=== PATIENT | female | born 1995 | race Caucasian/White ===

== ENCOUNTER 2016-03-29 07:21 | Emergency (ER) | payer SELFPAY ==
--- NOTE | 2016-03-29 08:34 | ERRECORD ---
[facility] EMERGENCY RECORD HPI VAGINAL DISCHARGE (08:03 MBRI) CHIEF COMPLAINT: Patient presents for evaluation of 20 yo female with complaints of vaginal sores and pain. This started several days ago after the patient shaved her rectal and genital region. She began to notice numerous pustular type blisters in the area along with pain. This was mod but severe last night and it made it difficult to sleep last night. She denies f/c/n/v. No abd issues. No other complaints today. She is on her cycle currently which is normal. No vaginal pain or discharge noted. No prior hx of same in the past and no reported hx of STI's. HISTORIAN: History provided by patient. LOCATION: Symptoms are localized. QUALITY: Pain is sharp in nature. TIME COURSE: Gradual onset of symptoms, 3, days priror to arrival, Symptoms are worsening, are constant. ASSOCIATED WITH: Associated with vaginal bleeding, Denies any other complaints. EXACERBATED BY: Patient's condition exacerbated by intercourse, Patient's condition exacerbated by movement. RELIEVED BY: Patient's condition relieved by nothing. ROS (08:11 MBRI) CONSTITUTIONAL: Historian denies chills, denies fever. GI: Negative gastrointestinal review of systems, Historian denies abdominal pain, denies diarrhea, denies nausea, denies vomiting. GENITOURINARY FEMALE: Historian denies dysuria, denies frequency, denies hematuria, denies , denies urinary retention, reports vaginal bleeding, denies vaginal discharge, reports vaginal itching. SKIN: Historian denies cellulitis, denies induration, reports rash, reports skin lesions. NEUROLOGIC: Negative neurologic review of systems. NOTES: All systems reviewed, negative except as described above. PAST MEDICAL HISTORY (07:31 ERUI) MEDICAL HISTORY: No past medical history, Flu vaccine not up to date, Tetanus immunization up to date, Pneumococcal vaccine not up to date. FEMALE SURGICAL HISTORY: Patient has no surgical history. PSYCHIATRIC HISTORY: No previous psychiatric history. SOCIAL HISTORY: Patient denies alcohol use, Patient denies drug use, Patient has no smoking history. KNOWN ALLERGIES No Known Drug Allergies CURRENT MEDICATIONS No recorded medications VITAL SIGNS (07:27 AHOO) &a-1R&a+25V*p+0X*a0615W*c202B*c15G*c2P*p-0X&a-25V&a+1R Name: Deedee Hamm : 1995 F20 MedRec: [id number] AcctNum: [id number] Prepared: MonMar 31, 2016 10:54 by Interface Page 1 of 3 pMD [facility] EMERGENCY RECORD VITAL SIGNS: BP: 124/81, Pulse: 106, Resp: 18, Temp: 98.8 (Oral), Pain: 0, O2 sat: 97 on Room Air, Time: 03/29/2016 07:27. PHYSICAL EXAM (08:14 MBRI) CONSTITUTIONAL: Vital signs reviewed. EYES: Eye exam normal, Eye exam included findings of eyelids normal to inspection, Pupils equally round and reactive to light, Extraocular muscles intact. ENT: Pharynx exam normal, Uvula exam normal, Tonsil exam normal, Mouth exam included findings of, Lesions noted, aphthous ulcers noted to the intraoral regions of the upper lip. RESPIRATORY CHEST: Respiratory exam included findings of no respiratory distress, Breath sounds clear, No wheezing, No rales, No rhonchi. CARDIOVASCULAR: Cardiovascular exam included findings of heart rate regular rate and rhythm, Heart sounds normal. ABDOMEN FEMALE: Abdominal exam included findings of abdomen nontender, no distension, no peritoneal signs, no rigidity, no guarding, no rebound. GENITOURINARY FEMALE: Genitourinary exam included findings of external genitalia abnormal, multiple pustular lesions notes of the mons, martha labia and post vaginal opening as well as multiple lesions in the perirectal region. Many of these are noted to have unroofed and are shallow ulcers at this time. Appears to possibly represent folliculitis vs primary HSV reaction., vaginal mucosa normal. NEURO: Margaret coma scale 15, Neuro exam findings include patient oriented to person, place and time, Speech normal. SKIN: Skin exam included findings of skin warm, dry, and normal in color. DOCTOR NOTES (08:18 MBRI) TEXT: Pt with findings of new onset rash lesions that could represent follicular infection based on her recent grooming issues. Will place her on abx and rec PMD type follow-up vs return to ED for worsening issues. I have also discussed these lesions as possible HSV primary reaction and have collected samples for clarification of this diagnosis. I discussed at length these situations and pt states understanding. Pt stable for d/c at this time. PATIENT PLAN: The patient will be discharged, The patient will follow up with primary care physician. PROBLEM LIST No recorded problems DIAGNOSIS (07:58 MBRI) FINAL: PRIMARY: folliculitis of the vaginal/rectal area. &a-1R&a+25V*p+0X*c8302R*c202B*c15G*c2P*p-0X&a-25V&a+1R Name: Deedee Hamm : 1995 F20 MedRec: [id number] AcctNum: [id number] Prepared: Maryuri Mar 31, 2016 10:54 by Interface Page 2 of 3 pMD [facility] EMERGENCY RECORD PRESCRIPTION (07:54 MBRI) acetaminophen-codeine: TABLET : 300 mg-30 mg : ORAL : Quantity: 1 Unit: tab(s) Route: ORAL Schedule: every 4 hours prn Dispense: 20 May substitute. Refills: No Refills . NOTES: No refills. Bactrim DS: TABLET : 800 mg-160 mg : ORAL : Quantity: 1 Unit: tab(s) Route: ORAL Schedule: 2 times a day Dispense: 14 May substitute. Refills: No Refills . NOTES: ^s=No refills No refills. Keflex: CAPSULE (HARD, SOFT, ETC.) : 500 mg : ORAL : Quantity: 1 Unit: tab(s) Route: ORAL Schedule: every 6 hours Dispense: 28 May substitute. Refills: No Refills . NOTES: ^s=^s=No refills No refills No refills. DISPOSITION PATIENT: Disposition Type: Discharge, Disposition: *Discharge Home. (07:58 RI) Patient left the department. (08:27 [facility]) Hearn: TRAE=LIANNE Morley, May ERUI=MARYA Eduardo Emilia MBRI=DO Devlin Matthew &a-1R&a+25V*p+0X*s4272E*c202B*c15G*c2P*p-0X&a-25V&a+1R Name: Deedee Hamm : 1995 F20 MedRec: [id number] AcctNum: [id number] Prepared: Maryuri Mar 31, 2016 10:54 by Interface Page 3 of 3 pMD MTDD
--- NOTE | 2016-03-29 08:38 | PICIS ---
[facility] EMERGENCY RECORD TRIAGE (MonMar 29, 2016 07:26 ERUI) TRIAGE NOTES: c/o of noticed blisters on vaginal area 2 days ago, c/o of pain. (MonMar 29, 2016 07:26 ERUI) PATIENT: NAME: Deedee Hamm, AGE: 20, GENDER: female, : Mon1995, TIME OF GREET: MonMar 29, 2016 07:22, PREFERRED LANGUAGE: [place], ETHNICITY: Not or , ECODE BILLING MAP: [facility], SSN: [id number], KG WEIGHT: 63.50, , , PERSON ID: [id number], PAYMENT: [employer] Self Pay, PCP: none. (MonMar 29, 2016 07:26 ERUI) Zip Code: [address], PHONE: . (07:36) COMPLAINT: blisters on vaginal area. (MonMar 29, 2016 07:26 ERUI) ADMISSION: URGENCY: 4 Non Urgent, ADMISSION SOURCE: Home, TRANSPORT: CAR, BED: TRIAGE. (MonMar 29, 2016 07:26 ERUI) SIRS SCORING: Heart Rate 55-109 (0), Temp range 96.8-101.1 (0), respiratory rate 12-24 (0), Mental Status altered: no (0). (07:31 ERUI) TRIAGE SCREENING: Patient denies suicidal ideation, Patient denies presence of domestic violence. (07:31 ERUI) TREATMENTS IN PROGRESS: Treatments given Prehospital: none. (07:31 ERUI) PROVIDERS: TRIAGE NURSE: Dana Eduardo RN. (MonMar 29, 2016 07:26 ERUI) KNOWN ALLERGIES No Known Drug Allergies CURRENT MEDICATIONS No recorded medications VITAL SIGNS (07:27 AHOO) VITAL SIGNS: BP: 124/81, Pulse: 106, Resp: 18, Temp: 98.8 (Oral), Pain: 0, O2 sat: 97 on Room Air, Time: 03/29/2016 07:27. NURSING ASSESSMENT: GENITOURINARY (07:34 ERUI) CONSTITUTIONAL: Patient arrives ambulatory, Gait steady, History obtained from patient, Patient appears comfortable, Patient cooperative, Patient alert, Oriented to person, place and time, Skin warm, Skin dry, Patient complains of BLISTER ON VAGINAL AREA. PAIN FEMALE: Pain exacerbated by, Pain exacerbated by, URINATION, Nothing has been tried to alleviate the pain, burning pain, to the left labia majora, to the right labia majora, to the labia majora, to the left labia minora, to the right labia minora, to the labia minora, to the vagina, constant, DENIES PAIN AT THIS TIME. GENITOURINARY FEMALE: Associated with urinary complaints, SOLORZANO, WHEN URINE HITS THE BLISTER ON VAGINAL AREA, no associated vaginal discharge, no associated vaginal &a-1R&a+25V*p+0X*q9182T*c202B*c15G*c2P*p-0X&a-25V&a+1R Name: Deedee Hamm : 1995 F20 MedRec: [id number] AcctNum: [id number] Prepared: [facility] Mar 31, 2016 10:54 by Interface Page 1 of 5 pMD [facility] EMERGENCY RECORD bleeding, Notes: PT ON HER MENSTRUAL CYCLE. NOTES: Notes: deferred assessment to dr Devlin. May ASSISTANT SERVICE MANAGER assisted with vaginal exam. SAFETY: Side rails up, Cart/Stretcher in lowest position, Family at bedside, Call light within reach, Hospital ID band on. NURSING PROCEDURE: DISCHARGE NOTE (08:07 OO) DISCHARGE: Patient discharged to home, ambulating without assistance, driving self, unaccompanied, Summary of Care printed/ provided, Transition record given to patient, Discharge instructions given to patient, Prescriptions given and instructions on side effects given, Above person(s) verbalized understanding of discharge instructions and follow-up care, Patient treated and evaluated by physician. NURSING PROCEDURE: NURSE NOTES (08:00 OO) NURSES NOTES: Notes: assisted md with vaginal exam I was in the exam room with the doctor at all times. ORDER DETAILS Order Name: Culture, Rapid Herpes Type 1&2, Status: Active, Time: 07:53 03/29/2016, User: JOHN, - Ordered for: DO Devlin Matthew, - Entered by: DO Devlin Matthew - Tue Mar 29, 2016 07:53, - Quantity: 1, - Source:: vaginal Tue Mar 29, 2016 07:59 [place], ASSISTANT SERVICE MANAGER, May. HPI VAGINAL DISCHARGE (08:03 MBRI) CHIEF COMPLAINT: Patient presents for evaluation of 20 yo female with complaints of vaginal sores and pain. This started several days ago after the patient shaved her rectal and genital region. She began to notice numerous pustular type blisters in the area along with pain. This was mod but severe last night and it made it difficult to sleep last night. She denies f/c/n/v. No abd issues. No other complaints today. She is on her cycle currently which is normal. No vaginal pain or discharge noted. No prior hx of same in the past and no reported hx of STI's. HISTORIAN: History provided by patient. LOCATION: Symptoms are localized. QUALITY: Pain is sharp in nature. TIME COURSE: Gradual onset of symptoms, 3, days priror to arrival, Symptoms are worsening, are constant. ASSOCIATED WITH: Associated with vaginal bleeding, Denies any other complaints. EXACERBATED BY: Patient's condition exacerbated by intercourse, Patient's condition exacerbated by movement. RELIEVED BY: Patient's condition relieved by nothing. ROS (08:11 MBRI) &a-1R&a+25V*p+0X*j2583T*c202B*c15G*c2P*p-0X&a-25V&a+1R Name: Deedee Hamm : 1995 F20 MedRec: [id number] AcctNum: [id number] Prepared: [facility] Mar 31, 2016 10:54 by Interface Page 2 of 5 pMD [facility] EMERGENCY RECORD CONSTITUTIONAL: Historian denies chills, denies fever. GI: Negative gastrointestinal review of systems, Historian denies abdominal pain, denies diarrhea, denies nausea, denies vomiting. GENITOURINARY FEMALE: Historian denies dysuria, denies frequency, denies hematuria, denies , denies urinary retention, reports vaginal bleeding, denies vaginal discharge, reports vaginal itching. SKIN: Historian denies cellulitis, denies induration, reports rash, reports skin lesions. NEUROLOGIC: Negative neurologic review of systems. NOTES: All systems reviewed, negative except as described above. PAST MEDICAL HISTORY (07:31 ERUI) MEDICAL HISTORY: No past medical history, Flu vaccine not up to date, Tetanus immunization up to date, Pneumococcal vaccine not up to date. FEMALE SURGICAL HISTORY: Patient has no surgical history. PSYCHIATRIC HISTORY: No previous psychiatric history. SOCIAL HISTORY: Patient denies alcohol use, Patient denies drug use, Patient has no smoking history. PHYSICAL EXAM (08:14 MBRI) CONSTITUTIONAL: Vital signs reviewed. EYES: Eye exam normal, Eye exam included findings of eyelids normal to inspection, Pupils equally round and reactive to light, Extraocular muscles intact. ENT: Pharynx exam normal, Uvula exam normal, Tonsil exam normal, Mouth exam included findings of, Lesions noted, aphthous ulcers noted to the intraoral regions of the upper lip. RESPIRATORY CHEST: Respiratory exam included findings of no respiratory distress, Breath sounds clear, No wheezing, No rales, No rhonchi. CARDIOVASCULAR: Cardiovascular exam included findings of heart rate regular rate and rhythm, Heart sounds normal. ABDOMEN FEMALE: Abdominal exam included findings of abdomen nontender, no distension, no peritoneal signs, no rigidity, no guarding, no rebound. GENITOURINARY FEMALE: Genitourinary exam included findings of external genitalia abnormal, multiple pustular lesions notes of the mons, martha labia and post vaginal opening as well as multiple lesions in the perirectal region. Many of these are noted to have unroofed and are shallow ulcers at this time. Appears to possibly represent folliculitis vs primary HSV reaction., vaginal mucosa normal. NEURO: Margaret coma scale 15, Neuro exam findings include patient oriented to person, place and time, Speech normal. SKIN: Skin exam included findings of skin warm, dry, and normal in color. &a-1R&a+25V*p+0X*h4646V*c202B*c15G*c2P*p-0X&a-25V&a+1R Name: Deedee Hamm : 1995 F20 MedRec: [id number] AcctNum: [id number] Prepared: Maryuri Mar 31, 2016 10:54 by Interface Page 3 of 5 pMD [facility] EMERGENCY RECORD EVENTS TRANSFER: Triage to Emergency Triage. (07:26 ERUI) Emergency Triage to Emergency Room -03. (07:27 ERUI) Removed from Emergency Emergency Room -03. (08:27 AHOO) O2SAT INTERPRETATION (07:59 MBRI) O2SAT: Oxygen saturation interpretation: Normal. DOCTOR NOTES (08:18 MBRI) TEXT: Pt with findings of new onset rash lesions that could represent follicular infection based on her recent grooming issues. Will place her on abx and rec PMD type follow-up vs return to ED for worsening issues. I have also discussed these lesions as possible HSV primary reaction and have collected samples for clarification of this diagnosis. I discussed at length these situations and pt states understanding. Pt stable for d/c at this time. PATIENT PLAN: The patient will be discharged, The patient will follow up with primary care physician. PROBLEM LIST No recorded problems DIAGNOSIS (07:58 MBRI) FINAL: PRIMARY: folliculitis of the vaginal/rectal area. DISPOSITION PATIENT: Disposition Type: Discharge, Disposition: *Discharge Home. (07:58 MBRI) Patient left the department. (08:27 AHOO) INSTRUCTION (07:55 MBRI) DISCHARGE: FOLLICULITIS. FOLLOWUP: [facility], /[facility], [address] [place], [place] [id number], , Follow up with Primary Care Physician in 7-10 days. SPECIAL: Please return for any further issues or concerns, we would be happy to see you. We hope you feel better soon. Follow-up with your PCP. PRESCRIPTION (07:54 MBRI) acetaminophen-codeine: TABLET : 300 mg-30 mg : ORAL : Quantity: 1 Unit: tab(s) Route: ORAL Schedule: every 4 hours prn Dispense: 20 May substitute. Refills: No Refills . NOTES: No refills. Bactrim DS: TABLET : 800 mg-160 mg : ORAL : Quantity: 1 Unit: tab(s) Route: ORAL Schedule: 2 times a day Dispense: 14 May substitute. Refills: No Refills . &a-1R&a+25V*p+0X*b0882I*c202B*c15G*c2P*p-0X&a-25V&a+1R Name: Deedee Hamm : 1995 F20 MedRec: [id number] AcctNum: [id number] Prepared: MonMar 31, 2016 10:54 by Interface Page 4 of 5 pMD [facility] EMERGENCY RECORD NOTES: ^s=No refills No refills. Keflex: CAPSULE (HARD, SOFT, ETC.) : 500 mg : ORAL : Quantity: 1 Unit: tab(s) Route: ORAL Schedule: every 6 hours Dispense: 28 May substitute. Refills: No Refills . NOTES: ^s=^s=No refills No refills No refills. IMAGING *DISCHARGE INSTRUCTIONS RECEIPT: Image captured from scanner. (08:13 OO) Page 2 added. Image captured from scanner. (08:13 OO) *SUPPLY CHARGE SHEET: Image captured from scanner. (08:14 AHOO) ADMIN (MonMar 31, 2016 10:48 MBRI) DIGITAL SIGNATURE: DO Devlin Matthew. Hearn: AHOO=LIANNE Morley, May ERUI=AMRYA Eduardo, Dana MBRI=DO Devlin Matthew &a-1R&a+25V*p+0X*d7093A*c202B*c15G*c2P*p-0X&a-25V&a+1R Name: Deedee Hamm : 1995 F20 MedRec: [id number] AcctNum: [id number] Prepared: MonMar 31, 2016 10:54 by Interface Page 5 of 5 pMD [facility] MEDICATION RECONCILIATION You were seen in the Emergency Department on: MonMar 29, 2016 KNOWN ALLERGIES No Known Drug Allergies Notes from the emergency department Reviewed with patient Reviewed with patient PRESCRIPTIONS (3) Printed (3) acetaminophen-codeine : TABLET : 300 mg-30 mg : ORAL Quantity: 1, Unit: tab(s), Route: ORAL, Schedule: every 4 hours prn, Dispense: 20 Bactrim DS : TABLET : 800 mg-160 mg : ORAL Quantity: 1, Unit: tab(s), Route: ORAL, Schedule: 2 times a day, Dispense: 14 &a-1R&a+25V*p+0X*p0084Y*c202B*c15G*c2P*p-0X&a-25V&a+1R Name: Deedee Hamm : 1995 F20 MedRec: [id number] AcctNum: [id number] Prepared: Maryuri Mar 31, 2016 10:54 by Interface pMD ELINA
== END 2016-03-29 08:07 | disposition home or self-care (01) ==
LOC: BURERS 07:21
DX: L73.9 Follicular disorder, unspecified (principal)
CPT/HCPCS: 87252; 99283